=== PATIENT | male | born 1975 | race Caucasian/White ===

== ENCOUNTER → 2020-09-19 18:14 | Outpatient (CLI) | payer OTHER, SELFPAY | PROVIDERS: Visit Provider Nurse Practitioner Family | DX: Z20.828 Contact with and (suspected) exposure to other viral communicable diseases (principal); U07.1 COVID-19 | CPT/HCPCS: U0003 ==

== ENCOUNTER 2021-07-23 01:13 | Emergency (ER) | payer OTHER, SELFPAY ==
[2021-07-23 01:14] VITALS: BP 119/79; PULSE 92; RESP 14; TEMP 36.4; O2SAT 96; BMI 31.0
[2021-07-23 02:00] VITALS: BP 134/91; PULSE 87; O2SAT 98
--- NOTE | 2021-07-23 02:19 | [facility].EDWNDL ---
ED Disposition Clinical Impression: Abrasion Laceration of ear Qualifiers: Encounter type: initial encounter Laterality: right Qualified Code(s): S01.311A - Laceration without foreign body of right ear, initial encounter Head contusion Qualifiers: Encounter type: initial encounter Contusion of head detail: scalp Qualified Code(s): S00.03XA - Contusion of scalp, initial encounter Disposition: Home, Self-Care Condition on Discharge: Good Instructions: DI for Laceration Repair Additional Instructions: use meds and see ent this week - sutures out 10-12 days Referrals: Provider,MD Kianna [Primary Care Provider] - Jose Peterson MD [Staff Physician] - - Critical Care Critical Care Time: No Attestation: On 07/23/21, the high probability of a clinically significant, sudden or life threatening deterioration of the following system(s) required my full and direct attention, intervention and personal management. The time I documented below is in addition to time spent performing reported procedures but includes the following listed in this critical care notation. Medical Decision Making - Medical Records Medical records reviewed: Yes: I reviewed the patient's medical records. - Aidan Inquiry Pt receiving controlled substance: No Vital Signs: 07/23/21 01:14 EST Temperature 97.6 F Temperature Source Oral Pulse Rate [Right] 92 H Respiratory Rate 14 Blood Pressure [Left Arm] 119/79 Blood Pressure Mean [Left Arm] 92 02 Sat by Pulse Oximetry 96 Oxygen Delivery Method Room Air Medical Decision Narrative: will ask pt to see ent this week Wound/Laceration HPI - General Chief Complaint: Wound/Laceration Stated Complaint: AO 07/23/21 0013 Laceration to right ear Time Seen by Provider: 07/23/21 01:30 EST Mode of Arrival: Ambulatory Source of Information: Patient, Medical Record Limitations: No Limitations Description of Symptoms (Recalled from ER Triage Doc. by RN): pt presents after a fall. states he was empting a cooler and tripped and felll hitting his head on a bench cutting his ear. pt has a laceration on the top of his right ear it is a straight through aprox 3/4 inch in. pt also has abrasions from his fall he has an abrasion on the right side of his head behind the ear anwell as a protruding knot. there is a large aprox. 3 in abrassion on his right arm one on his lower back, less severe not bleeding. multiple abrassions along the right leg onto the right foot. - History of Present Illness HPI narrative: trip fall with rt ear lac - no loc - no syncope and no chest pain Onset (ago): hour(s) Location: other (rt ear ) Place: home Patient tetanus UTD: No Context: accidental Associated symptoms: none - Related Data Home Medications Medication Instructions Recorded Confirmed No Known Home Medications 09/19/20 09/19/20 Allergies Allergy/AdvReac Type Severity Reaction Status Date / Time No Known Allergies Allergy Verified 09/19/20 17:05 [facility] History - Hepatitis A Screen Drug use history?: No High risk sexual behaviors?: No History of sexually transmitted infection?: No Currently employed?: No Childcare worker?: No Do you have indoor plumbing?: Yes Do you have electricity?: Yes Attestation statement:: This patient has been screened for Hepatitis A risk factors. I have reviewed the patient's past medical history: Yes - Social History Smoking Status: Never smoker Alcohol Intake: never Occupational Status: employed Family Hx:: Non-contributory ROS Obtained: Yes All systems reviewed & no additional complaints - Constitutional Constitutional: Denies fever(s) - Eyes Eyes: Denies change in vision - ENT Ears, Nose, Mouth, and Throat: Denies sore throat - Cardiovascular Cardiovascular: Denies chest pain - Respiratory Respiratory: Denies shortness of breath - Gastrointestinal Gastrointestingal: Denies: abdominal pain - Genitourinary Male Genitourinary: De
[2021-07-23 02:29] VITALS: BP 150/97; PULSE 84; RESP 16; TEMP 36.7; O2SAT 96
== END 2021-07-23 02:47 | disposition home or self-care (01) ==
PROVIDERS: Emergency Provider Emergency Medicine
DX: S01.311A Laceration without foreign body of right ear, initial encounter (principal); S00.03XA Contusion of scalp, initial encounter; W18.00XA Striking against unspecified object with subsequent fall, initial encounter; Y92.019 Unspecified place in single-family (private) house as the place of occurrence of the external cause; Z23 Encounter for immunization
CPT/HCPCS: 12013; 90714; 96372; 99282